=== PATIENT | male | born 1970 | race Caucasian/White ===

== ENCOUNTER 2023-04-30 03:08 | Inpatient (IN) | payer OTHER ==
[2023-04-30] VITALS (7 sets, daily range): BP systolic 119–131; BP diastolic 65–74; PULSE 68–86; RESP 12–24; TEMP 97.8–100.7; O2SAT 91–99
[~2023-04-30] VITALS: Ht 172.7 cm; Wt 78.5 kg
[2023-04-30 04:10] LABS: Basophils # (auto) 0 10 ^3/uL (0-0.2); Basophils % (auto) 0.4 % (0.0-2.0); Eosinophils # (auto) 0.1 10 ^3/uL (0-0.8); Hematocrit 38.2 % (41.0-53.0); Hemoglobin 13.3 g/dL (13.5-17.5); Lymphocytes # (auto) 0.9 10 ^3/uL (0.4-5.4); Lymphocytes % (auto) 12.6 % (10.0-50.0); Mean Corpuscular Hemoglobin 30.5 pg (28.0-32.0); Mean Corpuscular Hgb Conc. 34.7 g/dL (32.0-36.0); Mean Corpuscular Volume 87.8 fL (80.0-100.0); Monocytes # (auto) 0.4 10 ^3/uL (0-1.3); Monocytes % (auto) 5.5 % (0.0-12.0); Neutrophils # (auto) 5.5 10 ^3/uL (1.6-8.6); Neutrophils % (auto) 80.5 % (37.0-80.0); Nucleated Red Blood Cells % 0.1 %; Red Blood Cells 4.36 10^6/uL (4.5-5.90); Red Cell Distribution Width 12.5 % (11.8-14.3); White Blood Cell 6.8 10^3/uL (4.4-10.8)
[2023-04-30] MEDS ORDERED: fentaNYL CITRATE 100 MCG/2 ML VL IV ONE (04:15)
[2023-04-30 04:25] LABS: INR 1.12 (0.9-1.15); Partial Thromboplastin Time 32.3 SEC (24.5-34.5); Prothrombin Time 11.7 sec (9.3-11.8)
[2023-04-30 04:29] LABS: Alanine Aminotransferase 18 U/L (7-40); Alkaline Phosphatase 43 U/L (46-116); Anion Gap 8 (5-15); Aspartate Aminotransferase 16 U/L (13-40); BUN/Creatinine Ratio 17.4 (10.0-20.0); Blood Urea Nitrogen 16 mg/dL (9-23); Calcium 9.4 mg/dL (8.7-10.4); Carbon Dioxide 26 mmol/L (20-30); Chloride 106 mmol/L (98-107); Glucose 100 mg/dL (74-106); Potassium 3.2 mmol/L (3.5-5.1); Sodium 140 mmol/L (136-145)
[2023-04-30 04:30] LABS: Albumin 4.3 g/dL (3.2-4.8); Bilirubin, Total 0.6 mg/dL (0.2-1.0); Total Protein 6.5 g/dL (5.7-8.2)
[2023-04-30 06:54] LABS: Urine WBC None Seen /hpf (0 - 3)
[2023-04-30] MEDS ORDERED: ONDANSETRON HCL 4 MG/2 ML VIAL IV ONE (07:00)
[2023-04-30] MEDS ORDERED: MORPHINE SULFATE 4 MG/ML SYR/VIAL IV ONE ×2 (07:00→08:30)
[2023-04-30 07:10] LABS: Urine Bacteria NONE SEEN /hpf (None Seen); Urine Blood Negative /uL (Negative); Urine Clarity Clear (Clear); Urine Color Yellow (Yellow); Urine Protein, UAD Negative (Negative); Urine Urobilinogen Normal (Negative)
[2023-04-30] MEDS ORDERED: POTASSIUM EFFERVESENT TAB 25 MEQ PO ONE (07:15)
[2023-04-30 07:50] LABS: Amphetamine Screen, Urine Neg (NEGATIVE); Barbiturate Scree,Urine Neg (NEGATIVE); Benzodiazephine Screen, Urine Neg (NEGATIVE); Cannabinoid Screen, Urine Neg (NEGATIVE); Cocaine Screen, Urine Neg (NEGATIVE); Opiate Scree,Urine Neg (NEGATIVE); Phencyclidine Screen, Urine Neg (NEGATIVE)
[2023-04-30] MEDS: D5W/SOD CHL 0.45% 1,000 ML IV SCH (09:22)
[2023-04-30] MEDS: ENOXAPARIN SOD 40 MG/0.4 ML SYRINGE SC SCH (09:42)
[2023-04-30] MEDS: HYDROmorphone HCL 2 MG/ML VL/or syr IV PRN ×3 (11:13→20:34)
[2023-04-30] MEDS ORDERED: NALOXONE HCL 0.4 MG/ML VIAL ONE (11:26)
[2023-04-30] MEDS ORDERED: PHENYLEPHRINE HCL 10 MG/ML VL IV ONE (12:14)
[2023-04-30] MEDS: HYDROcodone-ACET 5/325MG TAB PO PRN ×2 (18:52→23:06)
[2023-05-01] VITALS (8 sets, daily range): BP systolic 107–138; BP diastolic 51–89; PULSE 82–100; RESP 12–20; TEMP 98.5–100.2; O2SAT 93–99
[2023-05-01] MEDS: D5W/SOD CHL 0.45% 1,000 ML IV SCH (00:35)
[2023-05-01] MEDS: HYDROmorphone HCL 2 MG/ML VL/or syr IV PRN ×6 (00:35→22:46)
[2023-05-01] MEDS: ENOXAPARIN SOD 40 MG/0.4 ML SYRINGE SC SCH (08:17)
[2023-05-01] MEDS ORDERED: DexAMETHasone SOD PHOS 10MG/1ML VIAL INJ ONE ×2 (08:32→09:37)
[2023-05-01] MEDS ORDERED: ONDANSETRON HCL 4 MG/2 ML VIAL ONE (08:32)
[2023-05-01] MEDS ORDERED: PROPOFOL 10 MG/ML 20 ML IV ONE (08:32)
[2023-05-01] MEDS ORDERED: KETOROLAC TROMETH 30 MG/ML 1ML VIAL ONE (08:32)
[2023-05-01] MEDS ORDERED: GLYCOPYRROLATE 0.2 MG/ML 1ML VIAL ONE (08:32)
[2023-05-01] MEDS ORDERED: LIDOCAINE 1% (LOCAL ANESTH.) PF 5ml SDV ONE (08:32)
[2023-05-01] MEDS ORDERED: fentaNYL CITRATE 100 MCG/2 ML VL ONE ×2 (08:34→09:23)
[2023-05-01] MEDS ORDERED: ceFAZolin 1GM/50ML 100 ML IV ONE (08:42)
[2023-05-01] MEDS ORDERED: TETRACAINE 1% INJ 2 ML VIAL IJ ONE (09:16)
[2023-05-01] MEDS ORDERED: MIDAZOLAM HCL 2MG/2ML 2ml VIAL (1mg/ml) ONE ×2 (09:23→10:07)
[2023-05-01] MEDS ORDERED: MORPHINE SULF PF 5 MG/10 ML VIAL ONE (09:23)
[2023-05-01] MEDS ORDERED: ACETAMINOPHEN 325 MG TAB PO PRN (11:00)
[2023-05-01] MEDS ORDERED: BISACODYL 5 MG EC TAB PO PRN (11:00)
[2023-05-01] MEDS ORDERED: NITROGLYCERIN 0.4 MG SL TAB SL PRN (11:00)
[2023-05-01] MEDS: LACTATED RINGER'S 1,000 ML IV SCH ×2 (12:36→22:31)
[2023-05-01] MEDS: ceFAZolin 1GM/50ML 50 ML IV SCH ×2 (14:31→20:33)
[2023-05-01] MEDS: HYDROcodone-ACET 5/325MG TAB PO PRN (14:42)
[2023-05-01] MEDS: HYDROcodone-ACET 10/325MG TAB PO PRN ×2 (18:35→23:49)
[2023-05-01] MEDS: DOCUSATE SOD 100 MG CAP PO SCH (22:27)
[2023-05-02] VITALS (7 sets, daily range): BP systolic 101–119; BP diastolic 60–75; PULSE 85–100; RESP 16–20; TEMP 98.8–100.2; O2SAT 93–97
[2023-05-02] MEDS: HYDROmorphone HCL 2 MG/ML VL/or syr IV PRN ×6 (01:33→23:50)
[2023-05-02] MEDS: ceFAZolin 1GM/50ML 50 ML IV SCH (02:58)
[2023-05-02 06:26] LABS: Basophils # (auto) 0 10 ^3/uL (0-0.2); Basophils % (auto) 0.2 % (0.0-2.0); Eosinophils # (auto) 0 10 ^3/uL (0-0.8); Hematocrit 36.5 % (41.0-53.0); Hemoglobin 12.4 g/dL (13.5-17.5); Lymphocytes # (auto) 0.5 10 ^3/uL (0.4-5.4); Lymphocytes % (auto) 8.2 % (10.0-50.0); Mean Corpuscular Hemoglobin 30.5 pg (28.0-32.0); Mean Corpuscular Hgb Conc. 33.9 g/dL (32.0-36.0); Monocytes # (auto) 0.7 10 ^3/uL (0-1.3); Neutrophils # (auto) 5.4 10 ^3/uL (1.6-8.6); Neutrophils % (auto) 80.6 % (37.0-80.0); Red Blood Cells 4.06 10^6/uL (4.5-5.90); Red Cell Distribution Width 12.4 % (11.8-14.3); White Blood Cell 6.7 10^3/uL (4.4-10.8)
[2023-05-02 06:34] LABS: Chloride 100 mmol/L (98-107); Potassium 4.1 mmol/L (3.5-5.1)
[2023-05-02] MEDS: LACTATED RINGER'S 1,000 ML IV SCH ×3 (06:34→23:56)
[2023-05-02 06:35] LABS: Anion Gap 6 (5-15); Carbon Dioxide 29 mmol/L (20-30)
[2023-05-02 06:36] LABS: Calcium 8.9 mg/dL (8.7-10.4); Sodium 135 mmol/L (136-145)
[2023-05-02 06:41] LABS: BUN/Creatinine Ratio 9.4 (10.0-20.0); Blood Urea Nitrogen 9 mg/dL (9-23); Glucose 105 mg/dL (74-106)
[2023-05-02] MEDS: ONDANSETRON HCL 4 MG/2 ML VIAL IV PRN ×3 (09:38→19:49)
[2023-05-02] MEDS: ENOXAPARIN SOD 40 MG/0.4 ML SYRINGE SC SCH (09:39)
[2023-05-02] MEDS: DOCUSATE SOD 100 MG CAP PO SCH ×2 (09:39→22:07)
[2023-05-02] MEDS: HYDROcodone-ACET 5/325MG TAB PO PRN ×2 (12:21→17:49)
[2023-05-02] MEDS: HYDROcodone-ACET 10/325MG TAB PO PRN (22:11)
[2023-05-03] MEDS: HYDROmorphone HCL 2 MG/ML VL/or syr IV PRN ×7 (01:02→20:11)
[2023-05-03 05:00] VITALS: BP 113/76; PULSE 86; RESP 18; TEMP 98.6; O2SAT 96
[2023-05-03] MEDS: HYDROcodone-ACET 10/325MG TAB PO PRN ×2 (05:50→13:42)
[2023-05-03 06:26] LABS: Hematocrit 28.6 % (41.0-53.0); Hemoglobin 9.7 g/dL (13.5-17.5)
[2023-05-03 08:00] VITALS: BP 104/58; PULSE 89; RESP 22; TEMP 98.7; O2SAT 100
[2023-05-03] MEDS: DOCUSATE SOD 100 MG CAP PO SCH ×2 (09:21→22:29)
[2023-05-03] MEDS: ENOXAPARIN SOD 40 MG/0.4 ML SYRINGE SC SCH (09:31)
[2023-05-03 12:00] VITALS: BP 110/70; PULSE 95; RESP 22; TEMP 100.2; O2SAT 94
[2023-05-03] MEDS: LACTATED RINGER'S 1,000 ML IV SCH (13:20)
[2023-05-03 16:00] VITALS: BP 95/52; PULSE 100; RESP 24; TEMP 102.2; O2SAT 98
[2023-05-03] MEDS: ONDANSETRON HCL 4 MG/2 ML VIAL IV PRN (16:54)
[2023-05-03] MEDS: HYDROcodone-ACET 5/325MG TAB PO PRN (18:15)
[2023-05-03 20:16] VITALS: PULSE 102; RESP 18
[2023-05-03 22:00] VITALS: BP 104/60; PULSE 80; RESP 18; TEMP 99.3; O2SAT 94
[2023-05-04] MEDS: HYDROmorphone HCL 2 MG/ML VL/or syr IV PRN ×6 (00:05→19:02)
[2023-05-04] MEDS: HYDROcodone-ACET 5/325MG TAB PO PRN ×2 (01:03→17:34)
[2023-05-04 05:00] VITALS: BP 105/67; PULSE 84; RESP 18; TEMP 98.4; O2SAT 98
[2023-05-04 07:37] LABS: Hematocrit 30.6 % (41.0-53.0); Hemoglobin 10.4 g/dL (13.5-17.5)
[2023-05-04] MEDS: DOCUSATE SOD 100 MG CAP PO SCH ×2 (08:27→21:21)
[2023-05-04] MEDS: ENOXAPARIN SOD 40 MG/0.4 ML SYRINGE SC SCH (08:27)
[2023-05-04 09:25] VITALS: BP 103/66; PULSE 82; RESP 20; TEMP 98.5; O2SAT 90
[2023-05-04 13:17] VITALS: BP 110/72; PULSE 97; RESP 18; TEMP 98.5; O2SAT 90
[2023-05-04 17:01] VITALS: BP 107/65; PULSE 95; RESP 20; TEMP 101; O2SAT 91
[2023-05-04 20:00] VITALS: BP 112/67; PULSE 86; RESP 17; TEMP 99.5; O2SAT 0
[2023-05-04] MEDS: NAPROXEN 500 MG TAB PO SCH (21:19)
[2023-05-04 22:00] VITALS: BP 112/67; PULSE 86; RESP 17; TEMP 99.5; O2SAT 95
[2023-05-04] MEDS: HYDROcodone-ACET 10/325MG TAB PO PRN (23:17)
[2023-05-05] MEDS: HYDROcodone-ACET 10/325MG TAB PO PRN ×4 (02:17→20:28)
[2023-05-05] MEDS: HYDROcodone-ACET 5/325MG TAB PO PRN (03:54)
[2023-05-05 05:00] VITALS: BP 90/55; PULSE 69; RESP 19; TEMP 98.3; O2SAT 98
[2023-05-05 08:00] VITALS: BP 101/63; PULSE 79; RESP 17; TEMP 98.5; O2SAT 0; O2SAT 94
[2023-05-05] MEDS: DOCUSATE SOD 100 MG CAP PO SCH ×2 (10:21→22:25)
[2023-05-05] MEDS: ENOXAPARIN SOD 40 MG/0.4 ML SYRINGE SC SCH (10:21)
[2023-05-05] MEDS: NAPROXEN 500 MG TAB PO SCH ×2 (10:21→22:25)
[2023-05-05 13:00] VITALS: BP 103/66; PULSE 81; RESP 20; TEMP 98; O2SAT 98
[2023-05-05 17:00] VITALS: BP 91/53; PULSE 80; RESP 18; TEMP 98.6; O2SAT 97
[2023-05-05 20:00] VITALS: BP 100/61; PULSE 70; RESP 18; TEMP 98.6; O2SAT 98
[2023-05-05 22:00] VITALS: BP 100/61; PULSE 70; RESP 18; TEMP 98.6; O2SAT 98
[2023-05-06] VITALS (7 sets, daily range): BP systolic 91–102; BP diastolic 52–62; PULSE 65–82; RESP 17–20; TEMP 97.4–98.8; O2SAT 0–100
[2023-05-06] MEDS: HYDROcodone-ACET 10/325MG TAB PO PRN ×4 (02:08→20:15)
[2023-05-06] MEDS: ENOXAPARIN SOD 40 MG/0.4 ML SYRINGE SC SCH (08:55)
[2023-05-06] MEDS: NAPROXEN 500 MG TAB PO SCH ×2 (08:55→21:27)
[2023-05-06] MEDS: DOCUSATE SOD 100 MG CAP PO SCH ×2 (08:55→21:27)
[2023-05-07] VITALS (7 sets, daily range): BP systolic 90–106; BP diastolic 49–68; PULSE 71–87; RESP 17–20; TEMP 98.3–98.9; O2SAT 0–99
[2023-05-07] MEDS: HYDROcodone-ACET 10/325MG TAB PO PRN ×4 (00:34→18:17)
[2023-05-07] MEDS: DOCUSATE SOD 100 MG CAP PO SCH ×2 (09:56→21:27)
[2023-05-07] MEDS: NAPROXEN 500 MG TAB PO SCH ×2 (09:57→21:26)
[2023-05-07] MEDS: ENOXAPARIN SOD 40 MG/0.4 ML SYRINGE SC SCH (09:58)
[2023-05-08] VITALS (7 sets, daily range): BP systolic 90–95; BP diastolic 52–59; PULSE 67–90; RESP 17–19; TEMP 97.9–98.6; O2SAT 92–98
[2023-05-08] MEDS: HYDROcodone-ACET 10/325MG TAB PO PRN ×4 (03:32→19:32)
[2023-05-08] MEDS: DOCUSATE SOD 100 MG CAP PO SCH ×2 (10:11→22:12)
[2023-05-08] MEDS: ENOXAPARIN SOD 40 MG/0.4 ML SYRINGE SC SCH (10:12)
[2023-05-08] MEDS: NAPROXEN 500 MG TAB PO SCH ×2 (10:12→22:12)
[2023-05-09] VITALS (8 sets, daily range): BP systolic 90–102; BP diastolic 52–63; PULSE 75–87; RESP 18–21; TEMP 97.9–98.5; O2SAT 95–99
[2023-05-09] MEDS: HYDROcodone-ACET 10/325MG TAB PO PRN ×5 (00:52→18:42)
[2023-05-09] MEDS: DOCUSATE SOD 100 MG CAP PO SCH ×2 (09:17→21:24)
[2023-05-09] MEDS: NAPROXEN 500 MG TAB PO SCH ×2 (09:17→21:24)
[2023-05-09] MEDS: ENOXAPARIN SOD 40 MG/0.4 ML SYRINGE SC SCH (09:18)
[2023-05-09] MEDS ORDERED: SODIUM CHLORIDE 0.9% 1,000 ML IV ONE (20:45)
[2023-05-09] MEDS ORDERED: HYDROmorphone HCL 2 MG/ML VL/or syr IV ONE (20:45)
[2023-05-10] VITALS (7 sets, daily range): BP systolic 88–104; BP diastolic 48–63; PULSE 70–87; RESP 14–20; TEMP 97.9–98.5; O2SAT 96–100
[2023-05-10] MEDS: HYDROcodone-ACET 10/325MG TAB PO PRN ×4 (04:55→22:44)
[2023-05-10 05:51] LABS: Basophils # (auto) 0 10 ^3/uL (0-0.2); Basophils % (auto) 0.7 % (0.0-2.0); Eosinophils # (auto) 0.2 10 ^3/uL (0-0.8); Hematocrit 27.5 % (41.0-53.0); Hemoglobin 9.3 g/dL (13.5-17.5); Lymphocytes # (auto) 1.3 10 ^3/uL (0.4-5.4); Lymphocytes % (auto) 26.8 % (10.0-50.0); Mean Corpuscular Hemoglobin 30.5 pg (28.0-32.0); Mean Corpuscular Hgb Conc. 33.9 g/dL (32.0-36.0); Monocytes # (auto) 0.5 10 ^3/uL (0-1.3); Monocytes % (auto) 10.8 % (0.0-12.0); Neutrophils # (auto) 2.9 10 ^3/uL (1.6-8.6); Neutrophils % (auto) 57.7 % (37.0-80.0); Nucleated Red Blood Cells % 0.1 %; Red Blood Cells 3.06 10^6/uL (4.5-5.90); Red Cell Distribution Width 12.9 % (11.8-14.3)
[2023-05-10 06:06] LABS: Alanine Aminotransferase 11 U/L (7-40); Alkaline Phosphatase 48 U/L (46-116); Anion Gap 3 (5-15); BUN/Creatinine Ratio 22.1 (10.0-20.0); Blood Urea Nitrogen 19 mg/dL (9-23); Calcium 8.8 mg/dL (8.7-10.4); Carbon Dioxide 31 mmol/L (20-30); Chloride 105 mmol/L (98-107); Glucose 100 mg/dL (74-106); Potassium 4.6 mmol/L (3.5-5.1); Sodium 139 mmol/L (136-145)
[2023-05-10 06:07] LABS: Albumin 3.4 g/dL (3.2-4.8); Aspartate Aminotransferase 9 U/L (13-40); Bilirubin, Total 0.5 mg/dL (0.2-1.0); Total Protein 5.9 g/dL (5.7-8.2)
[2023-05-10] MEDS: ENOXAPARIN SOD 40 MG/0.4 ML SYRINGE SC SCH (10:31)
[2023-05-10] MEDS: DOCUSATE SOD 100 MG CAP PO SCH ×2 (10:32→21:08)
[2023-05-10] MEDS: NAPROXEN 500 MG TAB PO SCH ×2 (10:32→21:08)
[2023-05-10] MEDS ORDERED: SODIUM CHLORIDE 0.9% 1,000 ML IV ONE (16:45)
[2023-05-11] MEDS: HYDROcodone-ACET 10/325MG TAB PO PRN ×4 (02:26→19:33)
[2023-05-11 05:00] VITALS: BP 90/63; PULSE 75; RESP 16; TEMP 98.4; O2SAT 95
[2023-05-11 08:00] VITALS: BP 96/69; PULSE 72; PULSE 78; RESP 18; TEMP 98.4; O2SAT 98
[2023-05-11 09:00] VITALS: BP 96/69; PULSE 78; RESP 18; TEMP 98.9; O2SAT 98
[2023-05-11] MEDS: HYDROcodone-ACET 5/325MG TAB PO PRN (10:05)
[2023-05-11] MEDS: NAPROXEN 500 MG TAB PO SCH ×2 (10:05→21:54)
[2023-05-11] MEDS: DOCUSATE SOD 100 MG CAP PO SCH ×2 (10:05→21:54)
[2023-05-11 13:00] VITALS: BP 93/51; PULSE 83; RESP 20; TEMP 98.7; O2SAT 100
[2023-05-11 16:48] VITALS: BP 112/65; PULSE 63; RESP 16; TEMP 99.9; O2SAT 95
[2023-05-11 22:00] VITALS: BP 91/53; PULSE 69; RESP 22; TEMP 78.8; O2SAT 94
[2023-05-12] MEDS: HYDROcodone-ACET 10/325MG TAB PO PRN ×4 (02:01→16:10)
[2023-05-12 05:00] VITALS: BP 98/63; PULSE 68; RESP 22; TEMP 97.8; O2SAT 96
[2023-05-12 08:00] VITALS: PULSE 88; RESP 18; O2SAT 96
[2023-05-12 09:33] VITALS: BP 100/65; PULSE 87; RESP 18; TEMP 98.2; O2SAT 95
[2023-05-12] MEDS: DOCUSATE SOD 100 MG CAP PO SCH (10:13)
[2023-05-12] MEDS: NAPROXEN 500 MG TAB PO SCH (10:13)
[2023-05-12 12:54] VITALS: BP 100/65; PULSE 96; RESP 19; TEMP 98.6; O2SAT 95
[2023-05-12 16:36] VITALS: BP 116/74; PULSE 85; RESP 18; TEMP 98.1; O2SAT 99
== END 2023-05-12 17:50 | DRG 481 ==
LOC: EEVIPCON 03:08 → ER 03:08 → EDBD 03:08 → OVERFLOW 08:55 → CENTRAL 15:43
PROVIDERS: ADMIT Specialist; ATTEND Internal Medicine
PROC: 0QS704Z Reposition Left Upper Femur with Internal Fixation Device, Open Approach (ICD-10-PCS; principal; 2023-05-01 09:36)
DX: S72.142A Displaced intertrochanteric fracture of left femur, initial encounter for closed fracture (principal); S02.609A Fracture of mandible, unspecified, initial encounter for closed fracture; E87.6 Hypokalemia; S00.83XA Contusion of other part of head, initial encounter; S90.31XA Contusion of right foot, initial encounter; S06.0X0A Concussion without loss of consciousness, initial encounter; W18.39XA Other fall on same level, initial encounter; Y93.89 Activity, other specified; Y92.89 Other specified places as the place of occurrence of the external cause; Y99.8 Other external cause status; Z74.01 Bed confinement status
CPT/HCPCS: 36415; 70450; 70486; 71045; 71260; 72125; 72170; 73501; 73630; 73700; 74177; 76000; 80048; 80053; 80307; 81001; 82962; 85014; 85018; 85025; 85610; 85730; 87081; 96361; 96372; 96374; 96375; 96376; 97110; 97116; 97163; 97530; G0378; J0690; J1100; J1885; J2250; J2405; J2704